=== PATIENT | female | born 1930 | race African-American/Black ===

== ENCOUNTER 2019-04-09 13:37 | Outpatient (RCR) | payer BC | END 2019-05-03 | disposition home or self-care (01) | LOC: WCC 13:37 | DX: L97.423 Non-pressure chronic ulcer of left heel and midfoot with necrosis of muscle (principal); I82.402 Acute embolism and thrombosis of unspecified deep veins of left lower extremity; I73.9 Peripheral vascular disease, unspecified; E08.621 Diabetes mellitus due to underlying condition with foot ulcer; L03.113 Cellulitis of right upper limb; I25.10 Atherosclerotic heart disease of native coronary artery without angina pectoris; Z86.73 Personal history of transient ischemic attack (TIA), and cerebral infarction without residual deficits; Z79.899 Other long term (current) drug therapy | CPT/HCPCS: 11043; 87070; 87205 ==

== ENCOUNTER 2019-06-11 13:24 | Outpatient (RCR) | payer BC | END 2019-07-04 | disposition home or self-care (01) | LOC: WCC 13:24 | DX: I82.402 Acute embolism and thrombosis of unspecified deep veins of left lower extremity (principal); I73.9 Peripheral vascular disease, unspecified; E08.621 Diabetes mellitus due to underlying condition with foot ulcer; L97.423 Non-pressure chronic ulcer of left heel and midfoot with necrosis of muscle; L03.113 Cellulitis of right upper limb; I51.9 Heart disease, unspecified; E11.9 Type 2 diabetes mellitus without complications; Z86.73 Personal history of transient ischemic attack (TIA), and cerebral infarction without residual deficits | CPT/HCPCS: 11043; G0463 ==